=== PATIENT | male | born 1950 | race Caucasian/White ===

== ENCOUNTER 2022-02-28 08:42 | Emergency (ER) | payer OTHER, SELFPAY ==
[2022-02-28] VITALS (12 sets, daily range): BP systolic 131–175; BP diastolic 76–105; PULSE 57–72; RESP 12–18; TEMP 36.8; O2SAT 94–96; BMI 45.6
--- NOTE | 2022-02-28 09:11 | DI.RAD.S_ITS ---
PROCEDURE: XR CHEST 2V INDICATIONS: shortness of breath TECHNIQUE: 2 views of the chest were acquired. COMPARISON: None. FINDINGS: Surgical changes and devices: None. Lungs and pleura: Lungs are clear. No pleural effusions or pneumothorax. Mediastinum: Mediastinal contours are normal. Heart size is normal. Bones and chest wall: No suspicious bony abnormalities. Soft tissues appear unremarkable. IMPRESSION: No acute cardiopulmonary abnormalities or focal airspace disease. Dictated by: Parmjit Begum M.D. on 02/28/2022 at 9:46 Approved by: Parmjit Begum M.D. on 02/28/2022 at 9:46
[2022-02-28 09:21] LABS: Add Manual Diff / Slide Review NO; Basophils Absolute Auto 0 /uL (0-100); Basophils Percent Auto 0.6 % (0-2); Eosinophils Absolute Auto 200 /uL (0-450); Eosinophils Percent Auto 2.8 % (2-4); Hematocrit 47.1 % (41-53); Hemoglobin 16.1 g/dL (13.5-17.5); Lymphocytes Absolute Auto 2700 /uL (1100-4500); Lymphocytes Percent Auto 39.3 % (25-40); Mean Corpuscular HGB Conc 34.1 % (30-36); Mean Corpuscular Hemoglobin 30.7 PG (26-34); Monocytes Absolute Auto 500 /uL (0-900); Monocytes Percent Auto 6.6 % (3-14); Neutrophils Absolute Auto 3500 /uL (1500-7000); Neutrophils Percent Auto 50.7 % (50-75); Platelet Count 219 X10^3/uL (150-400); Red Blood Cell Count 5.23 X10^6/uL (4.5-5.9); Red Cell Distribution Width 18.6 % (11.6-14.8); White Blood Cell Count 6.9 X10^3/uL (4.5-11.0)
--- NOTE | 2022-02-28 09:24 | DI.CT.S_ITS ---
PROCEDURE: CT SOFT TISSUE NECK W CON INDICATIONS: Throat pain and swelling TECHNIQUE: After the administration of intravenous contrast, 3.0 mm axial sections acquired from the sella to the aortic arch. Additional oblique axial 3.0 mm sections acquired through the pharynx. 3 mm thick coronal and sagittal reformats were generated. For radiation dose reduction, the following was used: automated exposure control. COMPARISON: None. FINDINGS: Image quality: Excellent. Lymph nodes: No enlarged lymph nodes seen throughout the neck. Vessels: Visualized vasculature appears patent. Neck spaces: The oropharynx, nasopharynx, and pharynx demonstrate no mucosal lesions. The vocal cords, false vocal cords, pyriform sinuses, epiglottis, vallecula, and tongue base all appear normal. Extramucosal spaces appear unremarkable. Mild bilateral tonsillar fullness without mass or fluid collection. Glands: The parotid and submandibular glands appear normal. Thyroid gland is unremarkable. Miscellaneous: Visualized brain and orbits appear normal. Lung apices appear clear. Superficial soft tissues appear normal. Bones: No suspicious bony lesions. Visualized sinuses and mastoids appear unremarkable. IMPRESSION: Mild bilateral tonsillar fullness, overall nonspecific No mass or fluid collection. Dictated by: Jacinta Das M.D. on 02/28/2022 at 10:56 Approved by: Jacinta Das M.D. on 02/28/2022 at 11:03
--- NOTE | 2022-02-28 09:25 | ED_ITS ---
HPI - Neck Pain/Injury General Chief Complaint: Neck Pain/Injury Stated Complaint: Trouble breathing, fibroids in throat Time Seen by Provider: 02/28/22 09:16 Mode of arrival: Ambulatory History of Present Illness HPI Narrative: Patient complains of throat tightness and swelling with trouble breathing and swallowing for the past 1 week. He thought maybe he inhaled something in the environment that triggered this. He is not had any changes in his HIV/aids med ications. [facility] He states blood work done less than 4 weeks ago shows viral load of 0 with CD4 count of 400. It was 800 this past year. Patient in no distress. Denies any previous thyroid problems. No new medications. No rash. No prior history oral or esophageal fungal infection Related Data Previous Rx's Medication Instructions Recorded amoxicillin 500 mg capsule 500 mg PO BID #20 caps 02/28/22 Allergies Allergy/AdvReac Type Severity Reaction Status Date / Time pseudoephedrine AdvReac Verified 02/28/22 08:58 [From [facility]] Review of Systems Review of Systems Narrative: GENERAL: Denies chills, fatigue, malaise, fever, sweats. HEENT: Denies sinus pain, ear pain, positive for sore throat RESPIRATORY: Positive dyspnea, negative cough CARDIOVASCULAR: Denies chest pain, palpitations GASTROINTESTINAL: Denies nausea, vomiting, abdominal pain : Denies dysuria, frequency, hematuria MUSCULOSKELETAL: denies muscle or bony pain SKIN: Denies rash, skin lesions NEUROLOGIC: Denies weakness, numbness ROS Unobtainable: All systems reviewed & are unremarkable except as noted in HPI and below Patient History Substance Use Type: marijuana Exam Narrative Exam Narrative: GENERAL: in no distress, not toxic not dyspneic HEAD: Normocephalic. EYES: Pupils equal round No scleral icterus. ENT: Mucous membranes moist. Mild to moderate pharyngeal erythema, no thrush on the tongue or pharynx. No trismus or malocclusion. No pharyngeal exudates NECK: Trachea midline. No stridor, there is fullness to the anterior neck. However this may be patient's body habitus. No palpable mass or fluctuance. It is tender to touch though. No overlying erythema. Or induration. CARDIOVASCULAR: Regular rate and rhythm without murmurs RESPIRATORY: Clear to auscultation. Breath sounds equal bilaterally. No wheezes, rales, or rhonchi. GASTROINTESTINAL: Abdomen soft, non-tender EXTREMITIES: No gross deformities. BACK: No flank tenderness. NEURO: AOx4. SKIN: Warm and dry PSYCH: Not anxious, is cooperative Initial Vital Signs Initial Vital Signs: Vital Signs Pulse Rate 72 02/28/22 08:50 Pulse Oximetry 94 02/28/22 08:50 Course Course Course Narrative: No new issues during course of stay Orders Ordered: ED Orders 02/28/22 11:15 Throat Culture Stat Discontinued Medications Amoxicillin (Amoxicillin 250 Mg Capsule) 500 mg PO NOW ONE Stop: 02/28/22 11:43 Last Admin: 02/28/22 11:59 Dose: 500 mg Documented By: BONITA Sodium Chloride (Normal Saline 0.9%) 500 mls @ 1,000 mls/hr IV BOLUS ONE Stop: 02/28/22 09:53 Last Infusion: 02/28/22 10:29 Dose: 0 mls/hr Documented By: Admin: 02/28/22 09:52 Dose: 1,000 mls/hr Documented By: JENNI Reevaluation(s) Reevaluation #1: Reviewed results with patient. Will treat clinically for pharyngitis. Blood work is reassuring however with history of immune compromise, may not mount a significant white cell count. Referral for ENT given as well. Also for referral to surgery for EGD evaluate for esophagus. Agrees with treatment plan. Regarding TSH levels. Will hold on starting Synthroid as this may be incidental finding. Thyroid on CT scan unremarkable. Patient does have a primary care that he can follow up with for further investigation and starting medication. Time: 11:45 Vital Signs Vital signs: Vital Signs - 8 hr 02/28/22 11:30 02/28/22 11:30 02/28/22 11:52 Pulse Rate 57 L 61 Respiratory Rate 12 14 Blood Pressure 175/105 H Pulse Oximetry 95 96 Oxygen Delivery Method Room Air 02/28/22 11:52 Pulse Rate Respiratory Rate Blood Pressure 131/81 Pulse Oximetry Oxygen Delivery Method MDM - Neck Pain/Injury Differential Diagnosis Differential diagnosis: Likely other (Thyromegaly/hypothyroidism/Angeli esophagitis/abscess/pharyngitis) Lab Data Result diagrams: 02/28/22 09:05 02/28/22 09:05 Labs: Lab Results 09/09/22 09/09/22 09/09/22 Range/Units 09:05 09:05 09:05 WBC 6.9 (4.5-11.0) X10^3/uL RBC 5.23 (4.5-5.9) X10^6/uL Hgb 16.1 (13.5-17.5) g/dL Hct 47.1 (41-53) % MCV 90.0 (80-100) fL MCH 30.7 (26-34) PG MCHC 34.1 (30-36) % RDW 18.6 H (11.6-14.8) % Plt Count 219 (150-400) X10^3/uL Neut % (Auto) 50.7 (50-75) % Lymph % (Auto) 39.3 (25-40) % Hartley % (Auto) 6.6 (3-14) % Eos % (Auto) 2.8 (2-4) % Baso % (Auto) 0.6 (0-2) % Neut # (Auto) 3500 (6416-1069) /uL Lymph # (Auto) 2700 (7970-3647) /uL Hartley # (Auto) 500 (0-900) /uL Eos # (Auto) 200 (0-450) /uL Baso # (Auto) 0 (0-100) /uL Sodium 141 (137-145) mmol/L Potassium 4.0 (3.4-5.1) mmol/L Chloride 103 (98-107) mmol/L Carbon Dioxide 28 (22-32) mmol/L BUN 16 (9-20) mg/dL Creatinine 1.39 H (0.66-1.25) mg/dL Estimated GFR 55 L (>60) mL/min BUN/Creatinine Ratio 11.5 (6-22) Glucose 148 H (80-110) mg/dL Lactate (0.7-2.1) mmol/L Calcium 9.7 (8.4-10.2) mg/dL Total Bilirubin 0.7 (0.2-1.3) mg/dL AST 72 H (17-59) IU/L ALT 36 (<50) IU/L Alkaline Phosphatase 52 (38-126) U/L Total Protein 8.7 H (6.3-8.2) g/dL Albumin 4.5 (3.5-5.0) g/dL Globulin 4.2 H (1.7-4.1) g/dL Albumin/Globulin Ratio 1.1 (1.0-2.8) TSH (0.47-4.68) uIU/mL SARS-CoV-2 (PCR) Negative (Negative) 02/28/22 02/28/22 Range/Units 09:05 09:05 WBC (4.5-11.0) X10^3/uL RBC (4.5-5.9) X10^6/uL Hgb (13.5-17.5) g/dL Hct (41-53) % MCV (80-100) fL MCH (26-34) PG MCHC (30-36) % RDW (11.6-14.8) % Plt Count (150-400) X10^3/uL Neut % (Auto) (50-75) % Lymph % (Auto) (25-40) % Hartley % (Auto) (3-14) % Eos % (Auto) (2-4) % Baso % (Auto) (0-2) % Neut # (Auto) (1920-6067) /uL Lymph # (Auto) (7104-6091) /uL Hartley # (Auto) (0-900) /uL Eos # (Auto) (0-450) /uL Baso # (Auto) (0-100) /uL Sodium (137-145) mmol/L Potassium (3.4-5.1) mmol/L Chloride (98-107) mmol/L Carbon Dioxide (22-32) mmol/L BUN (9-20) mg/dL Creatinine (0.66-1.25) mg/dL Estimated GFR (>60) mL/min BUN/Creatinine Ratio (6-22) Glucose (80-110) mg/dL Lactate 1.3 (0.7-2.1) mmol/L Calcium (8.4-10.2) mg/dL Total Bilirubin (0.2-1.3) mg/dL AST (17-59) IU/L ALT (<50) IU/L Alkaline Phosphatase (38-126) U/L Total Protein (6.3-8.2) g/dL Albumin (3.5-5.0) g/dL Globulin (1.7-4.1) g/dL Albumin/Globulin Ratio (1.0-2.8) TSH 73.2 H (0.47-4.68) uIU/mL SARS-CoV-2 (PCR) (Negative) Point of Care Testing Rapid Strep A Negative Imaging Data Chest x-ray: Radiologist's Impression: [address] [address] XRay Report Signed Patient: Robert Romero Jr MR#: [id number] : 1950 Acct:[id number] Age/Sex: 71 / M Date of Service: 02/28/22 Loc: ED Accession Number: [id number] ?? Procedure: XR chest 2V Ordering Provider: Mervin Deal MD PROCEDURE:? XR CHEST 2V ? INDICATIONS:? shortness of breath ? TECHNIQUE:? 2 views of the chest were acquired.? ? COMPARISON:? None. ? FINDINGS:? ? Surgical changes and devices:? None.? ? Lungs and pleura:? Lungs are clear.? No pleural effusions or pneumothorax.? ? Mediastinum:? Mediastinal contours are normal.? Heart size is normal.? ? Bones and chest wall:? No suspicious bony abnormalities.? Soft tissues appear unremarkable.? ? IMPRESSION:? No acute cardiopulmonary abnormalities or focal airspace disease. ? Dictated by: Parmjit Begum M.D. on 02/28/2022 at 9:46 ? ? Approved by: Parmjit Begum M.D. on 02/28/2022 at 9:46 ? CT soft tissue neck: Radiologist's Impression: [address] [address] [address] Scan Report Signed Patient: Robert Romero Jr MR#: [id number] : 1950 Acct:[id number] Age/Sex: 71 / M Date of Service: 02/28/22 Loc: ED Accession Number: [id number] ?? Procedure: CT soft tissue neck w con Ordering Provider: Mervin Deal MD PROCEDURE:? CT SOFT TISSUE NECK W CON ? INDICATIONS:? Throat pain and swelling ? TECHNIQUE:? After the administration of intravenous contrast, 3.0 mm axial sections acquired from the sella to the aortic arch.? Additional oblique axial 3.0 mm sections acquired through the pharynx.? 3 mm thick coronal and sagittal reformats were generated.? For radiation dose reduction, the following was used:? automated exposure control.? ? COMPARISON:? None. ? FINDINGS:? Image quality:? Excellent.? ? Lymph nodes:? No enlarged lymph nodes seen throughout the neck.? ? Vessels:? Visualized vasculature appears patent.? ? Neck spaces:? The oropharynx, nasopharynx, and pharynx demonstrate no mucosal lesions.? The vocal cords, false vocal cords, pyriform sinuses, epiglottis, vallecula, and tongue base all appear normal.? Extramucosal spaces appear unremarkable.? Mild bilateral tonsillar fullness without mass or fluid collection. ? Glands:? The parotid and submandibular glands appear normal.? Thyroid gland is unremarkable.? ? Miscellaneous:? Visualized brain and orbits appear normal.? Lung apices appear clear.? Superficial soft tissues appear normal. ? Bones:? No suspicious bony lesions.? Visualized sinuses and mastoids appear unremarkable. ? ? ? IMPRESSION: Mild bilateral tonsillar fullness, overall nonspecific? No mass or fluid collect ion. ? Dictated by: Jacinta Das M.D. on 02/28/2022 at 10:56 ? ? Approved by: Jacinta Das M.D. on 02/28/2022 at 11:03 ? ECG Data Interpretation: Normal sinus rhythm rate [address] elevation or depression, right bundle-branch block MDM Narrative Medical decision making narrative: Appropriate for discharge home. Exam and laboratory studies are reassuring. Thyroid levels can be followed with family doctor and further laboratory studies before starting Synthroid. Patient asymptomatic at this time. Likely incidental finding. Treating clinically for pharyngitis/strep throat. CT of soft tissue neck does show enlarged tonsils. Patient with immune compromise condition may not mount all of clinical features. Airway intact at time of discharge. Not toxic. Return precautions reviewed with patient. He agrees with treatment plan and follow-up with general surgery for endoscopy of the esophagus as well as ENT for follow-up regarding pharyngitis. [facility] Discharge Plan Departure Patient Disposition: Home Clinical Impression: Pharyngitis Instructions: DI for Pharyngitis/Tonsillopharyngitis -- Adult, DI for Hypothyroidism Activity Restrictions/Additional Instructions: See your family doctor for re-evaluation next week. Be sure to continue amoxicillin antibiotic prescribed to you. Complete the full course. Call provided ear nose and throat clinic with Dr. Bermudez today for office dashawn ointment next week for re-evaluation of your throat. Call Dr. Jalloh with General surgery to schedule endoscopy of your throat. Return if worse if any questions or concerns. Your family doctor needs to review laboratory studies of today's thyroid results. You may need medications to treat hypothyroidism Prescriptions: New amoxicillin 500 mg capsule 500 mg PO BID Qty: 20 0RF Referrals: Kerline Champion MD [Primary Care Provider] - Fannie Jalloh MD [Physician] - Eitan Bermudez MD [Physician] - Visit Report Forms: Patient Portal/API
[2022-02-28 09:35] LABS: Alanine Aminotransferase 36 IU/L (<50); Albumin 4.5 g/dL (3.5-5.0); Albumin Globulin Ratio 1.1 (1.0-2.8); Alkaline Phosphatase 52 U/L (38-126); Aspartate Aminotransferase 72 IU/L (17-59); BUN Creatinine Ratio 11.5 (6-22); Bilirubin Total 0.7 mg/dL (0.2-1.3); Blood Urea Nitrogen 16 mg/dL (9-20); Calcium 9.7 mg/dL (8.4-10.2); Carbon Dioxide 28 mmol/L (22-32); Chloride 103 mmol/L (98-107); Estimated Glomerular Filt Rate 55 mL/min (>60); Globulin 4.2 g/dL (1.7-4.1); Glucose 148 mg/dL (80-110); HEMOLYSIS 20 (0-50); Lactate (Lactic Acid) 1.3 mmol/L (0.7-2.1); Sodium 141 mmol/L (137-145); Total Protein 8.7 g/dL (6.3-8.2)
[2022-02-28] MEDS: SODIUM CHLORIDE 0.9% 500 ML 1000 ML IV (09:52)
[2022-02-28 09:59] LABS: COVID19 -Nasal RAPID Negative (Negative)
[2022-02-28 10:35] LABS: Thyroid Stimulating Hormone 73.2 uIU/mL (0.47-4.68)
[2022-02-28] MEDS: AMOXICILLIN 250 MG CAPSULE 500 MG PO (11:59)
== END 2022-02-28 12:10 | disposition home or self-care (01) ==
PROVIDERS: Emergency Provider Emergency Medicine; PCP Internal Medicine
DX: J02.9 Acute pharyngitis, unspecified (principal); R06.02 Shortness of breath; R07.9 Chest pain, unspecified; Z20.822 Contact with and (suspected) exposure to COVID-19
CPT/HCPCS: 36415; 70491; 71046; 80053; 83605; 84443; 85025; 87070; 87635; 87880; 93005; 93010; 99284; C9803; Q9967

== ENCOUNTER 2024-05-05 04:33 | Emergency (ER) | payer MEDICARE, SELFPAY ==
[2024-05-05] VITALS (7 sets, daily range): BP systolic 167; BP diastolic 96; PULSE 46–95; TEMP 36.4; O2SAT 93–98; BMI 41.0
--- NOTE | 2024-05-05 04:47 | ED_ITS ---
HPI - Male Genitourinary General Chief complaint: Urogenital-Male Stated complaint: testicle pain Time Seen by Provider: 05/05/24 04:34 History of Present Illness HPI Narrative: 73-year-old male presents for 2-3 days of increasing R scrotal pain. History is difficulty to obtain as patient is poor historian. 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 Patient states that he has been seen by Urology several times at [facility] and states that a few weeks ago his urologist told him: It's just AIDS, don't bother me about this again. He says he doesn't know his exact viral load or T-count, but says I think I'm undetectable and my CD4 should be over 1200. Denies nausea, vomiting, difficulty urinating. Related Data Previous Rx's Medication Instructions Recorded amoxicillin 500 mg capsule 500 mg PO BID #20 caps 02/28/22 hydrocodone 5 mg-acetaminophen 325 1 tab PO BEDTIME PRN pain #7 tabs 05/05/24 mg tablet Allergies Allergy/AdvReac Type Severity Reaction Status Date / Time pseudoephedrine AdvReac Verified 03/12/22 14:02 [From [facility]] Patient History Social History Smoking Status: Former smoker Substance Use Type: marijuana Exam Initial Vital Signs Initial Vital Signs: Vital Signs Pulse Rate 95 H 05/05/24 04:42 Blood Pressure 167/96 H 05/05/24 04:42 Pulse Oximetry 95 05/05/24 04:42 Const: Awake, alert, no acute distress, obese Cardiac: regular rate, regular rhythm RESP: unlabored, clear bilaterally, no wheezing GI: Soft, nontender, nondistended : atraumatic, buried penis. No obvious scrotal swelling or erythema. Exquisite tenderness at base of R scrotum Skin: Warm, Dry, intact, no rashes Neuro: AO x3, CN II-XII grossly intact, moves all extremities Course Orders Ordered: Discontinued Medications Oxycodone/Acetaminophen (Oxycodone/Acetaminophen 5/325 Tablet) 1 tab PO NOW ONE Stop: 05/05/24 05:10 Last Admin: 05/05/24 05:22 Dose: 1 tab Documented By: HNG Vital Signs Vital signs: Vital Signs - 8 hr 05/05/24 04:44 Temperature 97.6 F MDM - Male Genitourinary Lab Data 05/05/24 04:55 05/05/24 04:55 Labs: Lab Results 05/05/24 05/05/24 Range/Units 04:55 05:05 WBC 12.3 H (4.5-11.0) X10^3/uL RBC 4.82 (4.5-5.9) X10^6/uL Hgb 15.2 (13.5-17.5) g/dL Hct 45.4 (41-53) % MCV 94.1 (80-100) fL MCH 31.5 (26-34) PG MCHC 33.4 (30-36) % RDW 13.9 (11.6-14.8) % Plt Count 336 (150-400) X10^3/uL Neut % (Auto) 50.2 (50-75) % Lymph % (Auto) 37.0 (25-40) % Camp % (Auto) 9.5 (3-14) % Eos % (Auto) 2.7 (2-4) % Baso % (Auto) 0.6 (0-2) % Neut # (Auto) 6200 (2590-5891) /uL Lymph # (Auto) 4600 H (8549-1069) /uL Camp # (Auto) 1200 H (0-900) /uL Eos # (Auto) 300 (0-450) /uL Baso # (Auto) 100 (0-100) /uL Sodium 138 (137-145) mmol/L Potassium 4.1 (3.4-5.1) mmol/L Chloride 107 (98-107) mmol/L Carbon Dioxide 22 (22-32) mmol/L BUN 18 (9-20) mg/dL Creatinine 0.83 (0.66-1.25) mg/dL Estimated GFR > 60 (>60) mL/min BUN/Creatinine Ratio 21.7 (6-22) Glucose 227 H (80-110) mg/dL Calcium 9.6 (8.4-10.2) mg/dL Total Bilirubin 0.5 (0.2-1.3) mg/dL AST 33 (17-59) IU/L ALT 36 (<50) IU/L Alkaline Phosphatase 65 (38-126) U/L Total Protein 7.7 (6.3-8.2) g/dL Albumin 4.0 (3.5-5.0) g/dL Globulin 3.7 (1.7-4.1) g/dL Albumin/Globulin Ratio 1.1 (1.0-2.8) Urine Color Yellow Urine Appearance Clear Urine pH 5.5 (4.5-8.0) Ur Specific Gause 1.025 (1.000-1.035) Urine Protein Negative (Negative) Urine Glucose (UA) Negative (Negative) g/dL Urine Ketones Negative (NEGATIVE) Urine Occult Blood Negative (Negative) Urine Nitrate Negative (Negative) Urine Bilirubin Negative (NEGATIVE) Urine Urobilinogen 0.2 (0.2) E.U./dL Ur Leukocyte Esterase Negative (NEGATIVE) Urine RBC None seen (0-5/HPF) Urine WBC 0-1/hpf (0-5/HPF) Ur Squamous Epith Cells 0-1 /hpf (0-5/HPF) Urine Bacteria None seen (None) Ur Culture Indicated? Cult not indicated Vol Urine Centrifuged 10ml (spun) Imaging Data US - BEER STILL RUNNER COMPOUNDER: Radiologist's Impression: PROCEDURE: US SCROTUM INDICATIONS: R TESTICULAR PAIN/SWELLING TECHNIQUE: Real-time scanning was performed of the scrotum and testicles, with image documentation. Color and pulse Doppler interrogation was performed of both testicles. COMPARISON: None. FINDINGS: Right: Testicle is normal in size at 5.1 x 3.2 x 2.4 cm, and homogenous in echotexture. Epididymis is normal in overall size and morphology. No hydrocele or varicoceles. Overlying scrotal skin is normal in thickness. Multiple right epididymal cysts, the largest of which measures 2.1 x 1.9 x 1.7 cm. Left: Testicle is normal in size at 4.8 x 3.2 x 2.1 cm, and homogeneous in echotexture. Left testicle is noted to be rotated 180?. Has flow within it. Epididymis is normal in overall size and morphology. No hydrocele or varicoceles. Overlying scrotal skin is normal in thickness. Doppler: Color and pulse Doppler demonstrate normal and symmetric arterial flow in both testicles. Fat containing left inguinal hernia, not fully reducible with the ultrasound probe. The abdominal wall defect is approximately 2.2 cm. IMPRESSION: 1. The left testicle is rotated 180?. There is currently no evidence of testicular torsion. 2. Multiple large right epididymal cysts. 3. Fat containing right inguinal hernia. Comment: Final report is concordant with preliminary interpretation provided by [facility]. Dictated by: Riley Reyes M.D. on 05/05/2024 at 8:56 Approved by: Riley Reyes M.D. on 05/05/2024 at 9:00 [facility] Narrative Medical decision making narrative: Patient presenting for right-sided testicular pain. Records from [facility] reviewed. Patient had 2 visits on 04/01 and 04/03 for same complaint. He had an ultrasound performed on 04/01 that showed right epididymal simple cysts, skin thickening overlying the scrotum. At that time the provider called on-call urologist Dr. Deleon, who recommended oral doxycycline out of precaution to treat for cellulitis. Patient returned 2 days later insistent on receiving pain medications. He was noted at numerous points in both ER note to be requesting pain medications due losing follow up with his PCP. At that time his BUSINESS AFFAIRS MANAGER showed that he received a prescription for narcotics on March 16 that should have lasted him for at least another 2 weeks. Patient reportedly became verbally abusive, threatening to call the police when he was informed that he could not receive anymore prescription narcotics. I reviewed patient's BUSINESS AFFAIRS MANAGER and he received a 2 week supply of tramadol at the end of March from a primary care doctor at [facility]. US to be ordered, however care will be given with prescribing narcotics. US shows that left testicle was rotated 180? however there are no signs of torsion, and an any rate his pain is on the right-hand side not the left-hand side. There was note made of a left hernia, which the patient states he was aware of. Patient states that he has a primary appointment coming up on June 02 and requests a medication for pain ?to help me sleep at night?. BUSINESS AFFAIRS MANAGER shows that he is not currently in over-use and 7 tablets of norco [facility]. Discharge Plan Departure Patient Disposition: Home Clinical Impression: Right testicular pain Instructions: DI for Testicular Pain Activity Restrictions/Additional Instructions: Your ultrasound today did not show any sign of infection or abnormal twisting. You have some cysts present, that were also seen when he went to [facility] 1 month ago. You may take Tylenol and ibuprofen as needed for pain. Wear supportive underwear. Follow up with your urologist. If you can not follow up with your urologist at [facility] a different referral number has been provided.. Prescriptions: New hydrocodone-acetaminophen 5-325 mg tablet 1 tab PO BEDTIME PRN (Reason: pain) Qty: 7 0RF No Action amoxicillin 500 mg capsule 500 mg PO BID Qty: 20 0RF Referrals: Kerline Hess MD [Primary Care Provider] - Mervin Chavez MD [Physician] - Stand Alone Forms: Patient Portal/API/Survey
[2024-05-05 05:05] LABS: Add Manual Diff / Slide Review NO; Basophils Absolute Auto 100 /uL (0-100); Basophils Percent Auto 0.6 % (0-2); Eosinophils Absolute Auto 300 /uL (0-450); Eosinophils Percent Auto 2.7 % (2-4); Hematocrit 45.4 % (41-53); Hemoglobin 15.2 g/dL (13.5-17.5); Lymphocytes Absolute Auto 4600 /uL (1100-4500); Mean Corpuscular HGB Conc 33.4 % (30-36); Mean Corpuscular Hemoglobin 31.5 PG (26-34); Mean Corpuscular Volume 94.1 fL (80-100); Monocytes Absolute Auto 1200 /uL (0-900); Monocytes Percent Auto 9.5 % (3-14); Neutrophils Absolute Auto 6200 /uL (1500-7000); Neutrophils Percent Auto 50.2 % (50-75); Platelet Count 336 X10^3/uL (150-400); Red Blood Cell Count 4.82 X10^6/uL (4.5-5.9); Red Cell Distribution Width 13.9 % (11.6-14.8); White Blood Cell Count 12.3 X10^3/uL (4.5-11.0)
[2024-05-05 05:14] LABS: Appearance Urine UA CLEAR; Bilirubin Urine UA NEGATIVE (NEGATIVE); Color Urine UA YELLOW; Glucose Urine UA NEGATIVE (Negative); Ketones Urine UA NEGATIVE (NEGATIVE); Leukocyte Esterase Urine UA NEGATIVE (NEGATIVE); Nitrite Urine UA NEGATIVE (Negative); Occult Blood Urine UA NEGATIVE (Negative); Protein Urine UA NEGATIVE (Negative); Specific Gravity Urine UA 1.025 (1.000-1.035); Urobilinogen Urine UA 0.2 E.U./dL (0.2); pH Urine UA 5.5 (4.5-8.0)
[2024-05-05 05:18] LABS: Alanine Aminotransferase 36 IU/L (<50); Albumin Globulin Ratio 1.1 (1.0-2.8); Alkaline Phosphatase 65 U/L (38-126); Aspartate Aminotransferase 33 IU/L (17-59); BUN Creatinine Ratio 21.7 (6-22); Bilirubin Total 0.5 mg/dL (0.2-1.3); Blood Urea Nitrogen 18 mg/dL (9-20); Calcium 9.6 mg/dL (8.4-10.2); Carbon Dioxide 22 mmol/L (22-32); Chloride 107 mmol/L (98-107); Estimated Glomerular Filt Rate > 60 mL/min (>60); Globulin 3.7 g/dL (1.7-4.1); Glucose 227 mg/dL (80-110); HEMOLYSIS < 15 (0-50); Potassium 4.1 mmol/L (3.4-5.1); Sodium 138 mmol/L (137-145); Total Protein 7.7 g/dL (6.3-8.2)
[2024-05-05] MEDS: OXYCODONE/ACETAMINOPHEN 5/325 TABLET 1 TAB PO (05:22)
[2024-05-05 05:24] LABS: Bacteria Urine None Seen; RBC Urine None Seen (0-5/HPF); Urine Volume 10mL (spun); WBC Urine 0-1/HPF (0-5/HPF)
[2024-05-05 05:25] LABS: Culture Indicated Urine Cult Not Indicated; Squamous Epithelial Cell Urine 0-1 /HPF (0-5/HPF)
== END 2024-05-05 07:25 | disposition home or self-care (01) ==
PROVIDERS: Emergency Provider Emergency Medicine; PCP Internal Medicine
DX: N50.811 Right testicular pain (principal)
CPT/HCPCS: 36415; 76870; 80053; 81001; 85025; 93975; 99283; 99284

== ENCOUNTER 2024-05-09 10:26 | Emergency (ER) | payer MEDICARE, MEDICAID, SELFPAY ==
[2024-05-09] VITALS (11 sets, daily range): BP systolic 122–139; BP diastolic 61–85; PULSE 81–91; RESP 16–26; TEMP 36.8; O2SAT 93–97; BMI 39.5
--- NOTE | 2024-05-09 10:43 | EKG_ITS ---
[address] [address] Test Date: 2024-05-09 Pat Name: Robert Romero Jr Department: Room: Gender: Male Senior Talent Acquisition Specialist: SHIRIN : 1950 Requested By: Order Number: [id number] Reading MD: Chon Larios Measurements Intervals [place] Rate: 87 P: 44 [place]: 168 QRS: -71 QRSD: 104 T: 30 QT: 376 QTc: 452 Interpretive Statements Normal sinus rhythm Pulmonary disease pattern Left anterior fascicular block Electronically Signed On 05-11-2024 19:02:56 PST by Chon Larios
--- NOTE | 2024-05-09 10:46 | DI.RAD.S_ITS ---
PROCEDURE: XR CHEST 1V INDICATIONS: chest pain TECHNIQUE: One view of the chest was acquired. COMPARISON: None. FINDINGS: Surgical changes and devices: None. Lungs and pleura: Lungs are clear. No pleural effusions or pneumothorax. Mediastinum: Mediastinal contours appear normal. Heart size is normal. Bones and chest wall: No suspicious bony lesions. Overlying soft tissues appear unremarkable. IMPRESSION: No acute cardiopulmonary abnormality is seen. Dictated by: Feliz Frank M.D. on 05/09/2024 at 10:56 Approved by: Feliz Frank M.D. on 05/09/2024 at 10:57
[2024-05-09 11:21] LABS: Add Manual Diff / Slide Review NO; Basophils Absolute Auto 100 /uL (0-100); Basophils Percent Auto 0.8 % (0-2); Eosinophils Absolute Auto 400 /uL (0-450); Eosinophils Percent Auto 2.8 % (2-4); Hemoglobin 14.7 g/dL (13.5-17.5); Lymphocytes Absolute Auto 3300 /uL (1100-4500); Lymphocytes Percent Auto 23.8 % (25-40); Mean Corpuscular HGB Conc 33.4 % (30-36); Mean Corpuscular Hemoglobin 31.3 PG (26-34); Mean Corpuscular Volume 93.8 fL (80-100); Monocytes Absolute Auto 1300 /uL (0-900); Monocytes Percent Auto 9.2 % (3-14); Neutrophils Absolute Auto 8900 /uL (1500-7000); Neutrophils Percent Auto 63.4 % (50-75); Platelet Count 282 X10^3/uL (150-400); Red Cell Distribution Width 14.1 % (11.6-14.8)
--- NOTE | 2024-05-09 11:26 | ED.GENADULT ---
HPI - General Adult General Chief complaint: Dizziness Stated complaint: Hot flashes, Balance is off Time Seen by Provider: 05/09/24 11:09 Source: patient, RN notes reviewed and old records reviewed Mode of arrival: Ambulatory Limitations: no limitations History of Present Illness HPI narrative: 73-year-old male history of longstanding HIV reports well-controlled on antivirals patient presents with complaint of nausea and dizziness. Patient states he has had hot flashes and nausea he states it feels very similar as to when he initially started his antivirals 30 years ago when he was in the initial treatment state of his HIV/aids but states that he has not had that for some time. He states he has been having night sweats but also notes he is gone back on injections in addition to his antivirals for his HIV and seems to correlate to this. He notes symptoms were better controlled when he was on ferrous bones and daily narcotic from his primary care who has since retired. He states that he does not feel that there is any withdrawal component to his symptoms. He notes that he has also been feeling dizzy he describes it as the room spinning. Denies any recent upper respiratory infection, no hearing changes. States he has not had any vomiting with it. He has felt a little bit off balance states he fell 1 trend Thursday when this 1st seemed to start with the balance issues. Patient states no numbness tingling or weakness. No lateralizing weakness. No difficulty with speech. Vision changes. States he has a little chest discomfort but states it is his fibro myalgias spots in his chest. He can reproduce it when he palpates. Denies shortness of breath. States he has been having some chronic diarrhea no bright red blood or melanotic stools. No new changes to urination he has had intermittent testicular pain but states it seems to be improving since he was seen here on 05/05/2024. States home medications include ritonavir, tenofovir Patient states no prior surgeries. Has multiple allergies to medications. Denies tobacco, states quit alcohol 31 years ago, no recreational drugs. He has seeking a primary care physician [facility] Related Data Previous Rx's Medication Instructions Recorded amoxicillin 500 mg capsule 500 mg PO BID #20 caps 02/28/22 hydrocodone 5 mg-acetaminophen 325 1 tab PO BEDTIME PRN pain #7 tabs 05/05/24 mg tablet nitrofurantoin 100 mg PO Q12H 5 days #10 caps 05/09/24 monohydrate/macrocrystals 100 mg capsule (Macrobid) ondansetron 4 mg disintegrating 4 mg PO Q6H PRN nausea and 05/09/24 tablet vomiting #10 tabs Allergies Allergy/AdvReac Type Severity Reaction Status Date / Time tenofovir Allergy Severe Swelling Verified 05/09/24 10:51 of Lip/Tongue/Throat amoxicillin [From Augmentin] AdvReac Verified 05/09/24 10:49 carisoprodol [From Soma] AdvReac Verified 05/09/24 10:49 clavulanic acid AdvReac Verified 05/09/24 10:49 [From Augmentin] efavirenz [From Sustiva] AdvReac Verified 05/09/24 10:49 magnesium AdvReac Verified 05/09/24 10:49 meperidine [From Demerol] AdvReac Verified 05/09/24 10:49 oxycodone [From OxyContin] AdvReac Verified 05/09/24 10:49 pseudoephedrine AdvReac Verified 05/09/24 10:49 [From Sudafed] Review of Systems Review of Systems ROS Unobtainable: All systems reviewed & are unremarkable except as noted in HPI and below Patient History Social History Smoking Status: Former smoker Smoking Status: Former smoker Substance Use Type: marijuana Exam Narrative Exam Narrative: GEN: well nourished, well appearing male, alert and oriented x 3, patient appears to be in mild distress. HEENT: Atraumatic, pupils are equal round reactive to light, extraocular movements are intact, nares are clear, TMs are clear with no fluid, there is no conjunctival pallor. Throat is clear without any exudates, erythema, tonsillar enlargement or uvular deviation, no facial droop HEART: Regular rate and rhythm without murmur, clicks, rubs. Pulses are equal in upper and lower extremities LUNGS:Lungs clear to auscultation, no wheezes, rales, crackles, chest moves symmetrically ABD:bowel sounds normal, soft, non-tender, no guarding, rebound, rigidity, no masses noted, no hepatosplenomegaly :No CVA tenderness MSCL: Non-tender, no muscle atrophy, muscles strength 5/5 upper and lower extremities, full range of motion. NEURO:CN 2-12 intact, sensation normal. Initial Vital Signs Initial Vital Signs: Vital Signs Pulse Rate 91 H 05/09/24 10:39 Respiratory Rate 18 05/09/24 10:39 Pulse Oximetry 96 05/09/24 10:39 Course Orders Ordered: Discontinued Medications Aspirin (Aspirin 81 Mg Chew Tab) 324 mg PO NOW ONE Stop: 05/09/24 10:47 Last Admin: 05/09/24 12:06 Dose: Not Given Documented By: BRIGIDA Meclizine HCl (Meclizine Hcl 12.5 Mg Tablet) 50 mg PO NOW ONE Stop: 05/09/24 11:44 Last Admin: 05/09/24 12:12 Dose: 50 mg Documented By: BRIGIDA Ondansetron HCl (Ondansetron 4 Mg/2 Ml Inj) 4 mg IV NOW ONE Stop: 05/09/24 11:44 Last Admin: 05/09/24 12:01 Dose: 4 mg Documented By: BRIGIDA Vital Signs Vital signs: Vital Signs - 8 hr 05/09/24 10:39 05/09/24 10:40 05/09/24 11:00 Temperature 98.3 F Pulse Rate 91 H 88 87 Respiratory Rate 18 18 23 Blood Pressure 122/84 Pulse Oximetry 96 97 94 Oxygen Delivery Method Room Air 05/09/24 11:00 05/09/24 11:30 05/09/24 11:30 Temperature Pulse Rate 82 Respiratory Rate 22 Blood Pressure 124/70 125/65 Pulse Oximetry 96 Oxygen Delivery Method Room Air 05/09/24 11:57 05/09/24 11:57 05/09/24 12:00 Temperature Pulse Rate 81 84 Respiratory Rate 23 17 Blood Pressure 138/85 Pulse Oximetry 97 96 Oxygen Delivery Method Room Air 05/09/24 12:00 05/09/24 12:30 05/09/24 12:30 Temperature Pulse Rate 86 Respiratory Rate 26 H Blood Pressure 130/79 125/61 Pulse Oximetry 96 Oxygen Delivery Method 05/09/24 12:39 05/09/24 12:39 05/09/24 13:00 Temperature Pulse Rate 86 Respiratory Rate 23 Blood Pressure 139/73 Pulse Oximetry 96 93 Oxygen Delivery Method Room Air 05/09/24 13:01 05/09/24 13:01 Temperature Pulse Rate 89 Respiratory Rate Blood Pressure 124/74 Pulse Oximetry 94 Oxygen Delivery Method Room Air Medical Decision Making Lab Data 05/09/24 11:10 05/09/24 11:10 Labs: Lab Results 05/09/24 05/09/24 Range/Units 11:10 12:40 WBC 14.0 H (4.5-11.0) X10^3/uL RBC 4.70 (4.5-5.9) X10^6/uL Hgb 14.7 (13.5-17.5) g/dL Hct 44.0 (41-53) % MCV 93.8 (80-100) fL MCH 31.3 (26-34) PG MCHC 33.4 (30-36) % RDW 14.1 (11.6-14.8) % Plt Count 282 (150-400) X10^3/uL Neut % (Auto) 63.4 (50-75) % Lymph % (Auto) 23.8 L (25-40) % [place] % (Auto) 9.2 (3-14) % Eos % (Auto) 2.8 (2-4) % Baso % (Auto) 0.8 (0-2) % Neut # (Auto) 8900 H (2811-1800) /uL Lymph # (Auto) 3300 (3229-5908) /uL [place] # (Auto) 1300 H (0-900) /uL Eos # (Auto) 400 (0-450) /uL Baso # (Auto) 100 (0-100) /uL PT 12.0 (9.4-12.5) SECONDS INR 1.1 (0.9-1.3) APTT 30 (25.1-36.5) SECONDS Sodium 138 (137-145) mmol/L Potassium 4.1 (3.4-5.1) mmol/L Chloride 104 (98-107) mmol/L Carbon Dioxide 24 (22-32) mmol/L BUN 16 (9-20) mg/dL Creatinine 0.82 (0.66-1.25) mg/dL Estimated GFR > 60 (>60) mL/min BUN/Creatinine Ratio 19.5 (6-22) Glucose 184 H (80-110) mg/dL Calcium 9.7 (8.4-10.2) mg/dL Magnesium 2.0 (1.6-2.3) mg/dL Total Bilirubin 0.6 (0.2-1.3) mg/dL AST 37 (17-59) IU/L ALT 40 (<50) IU/L Alkaline Phosphatase 69 (38-126) U/L Total Creatine Kinase 26 L (55-170) U/L Troponin I < 0.012 (0.01-0.034) ng/mL NT-Pro-B Natriuret Pep 37 (<125) pg/mL Total Protein 7.4 (6.3-8.2) g/dL Albumin 4.1 (3.5-5.0) g/dL Globulin 3.3 (1.7-4.1) g/dL Albumin/Globulin Ratio 1.2 (1.0-2.8) Lipase 84 (23-300) U/L Urine RBC None seen (0-5/HPF) Urine WBC 1-5/hpf (0-5/HPF) Ur Squamous Epith Cells None seen (0-5/HPF) Urine Bacteria None seen (None) Ur Culture Indicated? Specimen cultured Vol Urine Centrifuged 10ml (spun) Urine Dip Bedside Urine Glucose Negative Bedside Urine Bilirubin - Negative Bedside Urine Ketone - Negative Urine Specific [place] 1.015 Bedside Urine Occult Blood - Negative Bedside Urine pH 6.0 Bedside Urine Protein - Negative Bedside Urine Urobilinogen - Negative Bedside Urine Nitrite - Negative Bedside Urine Leukocytes +/- 15 Esterase Point of care testing: Urine Dip Bedside Urine Glucose Negative Bedside Urine Bilirubin - Negative Bedside Urine Ketone - Negative Urine Specific [place] 1.015 Bedside Urine Occult Blood - Negative Bedside Urine pH 6.0 Bedside Urine Protein - Negative Bedside Urine Urobilinogen - Negative Bedside Urine Nitrite - Negative Bedside Urine Leukocytes +/- 15 Esterase Imaging Data Chest x-ray: Radiologist's Impression: Robert Romero Jr??73??M??1950 ? Allergy/Adv: tenofovir, amoxicillin, carisoprodol, clavulanic acid, efavirenz, magnesium, meperidine, oxycodone, pseudoephedrine (More??) Close Chest X-Ray (Signed) Feliz Frank - 05/09/24 Scrotum Ultrasound (Signed) Riley Reyes - 05/05/[address] (Signed) Jacinta Das - 02/28/22 Chest X-Ray (Signed) Parmjit Begum - 02/28/22 Launch?[address] [address] XRay Report Signed Patient: Robert Romero Jr MR#: [id number] : 1950 Acct:[id number] Age/Sex: 73 / M Date of Service: 05/09/24 Loc: ED Accession Number: [id number] Procedure: XR chest 1V Ordering Provider: Anna Gaitan D.O. PROCEDURE: XR CHEST 1V INDICATIONS: chest pain TECHNIQUE: One view of the chest was acquired. COMPARISON: None. FINDINGS: Surgical changes and devices: None. Lungs and pleura: Lungs are clear. No pleural effusions or pneumothorax. Mediastinum: Mediastinal contours appear normal. Heart size is normal. Bones and chest wall: No suspicious bony lesions. Overlying soft tissues appear unremarkable. IMPRESSION: No acute cardiopulmonary abnormality is seen. Dictated by: Feliz Frank M.D. on 05/09/2024 at 10:56 Approved by: Feliz Frank M.D. on 05/09/2024 at 10:57 CT scan - head: Radiologist's Impression: ephedrine (More??) Close Head CT (Signed) Feliz Frank - 05/09/24 Chest X-Ray (Signed) Feliz Frank - 05/09/24 [place] Ultrasound (Signed) Riley Reyes - 05/05/[address] (Signed) Jacinta Das - 02/28/22 Chest X-Ray (Signed) Parmjit Begum - 02/28/22 Launch?[address] [address] [address] Scan Report Signed Patient: Robert Romero Jr MR#: [id number] : 1950 Acct:[id number] Age/Sex: 73 / M Date of Service: 05/09/24 Loc: ED Accession Number: [id number] Procedure: CT head/brain wo con Ordering Provider: Anna Gaitan D.O. PROCEDURE: CT HEAD/BRAIN WO CON INDICATIONS: dizziness, HIV well controlled TECHNIQUE: Noncontrast 4.5 mm thick angled axial sections acquired from the foramen magnum to the vertex, with coronal and sagittal reformats. For radiation dose reduction, the following was used: automated exposure control, adjustment of mA and/or kV according to patient size. COMPARISON: None. FINDINGS: Image quality: Diagnostic. CSF spaces: Basal cisterns are patent. No extra-axial fluid collections. Ventricles are normal in size and shape. Brain: No midline shift. No intracranial masses or hemorrhage. Dong-white matter interface is normal. Skull and face: Calvarium and visualized facial bones are intact, without suspicious lesions. Sinuses: Visualized sinuses and mastoids are clear. IMPRESSION: No acute intracranial pathology. Dictated by: Feliz Frank M.D. on 05/09/2024 at 12:23 Approved by: Feliz Frank M.D. on 05/09/2024 at 12:24 ECG Data Attestation: I personally reviewed and interpreted this ECG as follows: Prior ECG tracings: available for review Interpretation: Sinus rhythm rate 87 AK 168 QRS of 104 QTC of 452, no acute ST changes appreciated. Patient has prior from 02/28/2022 which appears similar. MDM Narrative Medical decision making narrative: 73-year-old male was seen 05/05/2024 for scrotal pain note was reviewed patient was discharged home with pain medication had had a course of doxycycline there was no on ultrasound of the left testicle was rotated 180? although patient was having right testicular pain at that time. Patient notes nausea, night sweats does note he recent lay restarted injections for his HIV which might be causing some of his symptoms but also describes some dizziness no lateralizing weakness or other acute neurologic changes are appreciated. Labs show white count of 14 hemoglobin of 14.7 platelets of 282 white count is slightly elevated up from 12 on 05/05/2024. Coags Chemistries are appropriate with normal electrolytes, BUN and creatinine, glucose of 184 LFTs are negative total CK is 26 troponins less than 0.012 with a BNP of 37 Chest x-ray shows no acute change Head CT shows no acute change EKG shows sinus rhythm rate [address] changes patient has prior from 2021 appears similar. Urine shows leuks Patient states he feels improved. He would like a refill for his Zofran, reviewed his findings from today discussed with patient he is unsure if the meclizine was helpful but we did discuss that is available [id number]. We will start with an oral antibiotic as possibly has a UTI that could be causing some of his symptoms as well. Patient feels comfortable with this plan he would like to return home. He is able to head in all directions issues and has been up from the side of the bed to a chair without problems. Discharge Plan Departure Patient Disposition: Home Clinical Impression: Dizziness Instructions: DI for Dizziness-Nonvertigo Activity Restrictions/Additional Instructions: Please follow up with your physician for recheck. Contacts included on the card with the paperwork these are local primary care physicians taking patient is currently. Please call the number or use the QR code to set up follow up. Take oral antibiotics until completed. Prescription for Zofran was included you can take 1 tablet every 6 hours as needed for nausea. If you find the vertigo medication helpful you can take an [id number] has Bonivert, the presciption name is Meclizine. Prescription sent to [facility] in [place]. Please return if you are having new or worsening symptoms, any difficulty with speech, numbness weakness or tingling, passing out, new chest pain or shortness of breath, persistent vomiting or other new or concerning changes. Prescriptions: New nitrofurantoin monohyd/m-cryst [Macrobid] 100 mg capsule 100 mg PO Q12H 5 Days Qty: 10 0RF Rx Instructions: must administer with a meal/food ondansetron 4 mg tablet,disintegrating 4 mg PO Q6H PRN (Reason: nausea and vomiting) Qty: 10 0RF No Action amoxicillin 500 mg capsule 500 mg PO BID Qty: 20 0RF hydrocodone-acetaminophen 5-325 mg tablet 1 tab PO BEDTIME PRN (Reason: pain) Qty: 7 0RF Referrals: Kerline Hess MD [Primary Care Provider] - Stand Alone Forms: Patient Portal/API/Survey
[2024-05-09 11:37] LABS: Alanine Aminotransferase 40 IU/L (<50); Albumin 4.1 g/dL (3.5-5.0); Albumin Globulin Ratio 1.2 (1.0-2.8); Alkaline Phosphatase 69 U/L (38-126); Aspartate Aminotransferase 37 IU/L (17-59); BUN Creatinine Ratio 19.5 (6-22); Bilirubin Total 0.6 mg/dL (0.2-1.3); Blood Urea Nitrogen 16 mg/dL (9-20); Calcium 9.7 mg/dL (8.4-10.2); Carbon Dioxide 24 mmol/L (22-32); Chloride 104 mmol/L (98-107); Creatine Kinase 26 U/L (55-170); Estimated Glomerular Filt Rate > 60 mL/min (>60); Globulin 3.3 g/dL (1.7-4.1); Glucose 184 mg/dL (80-110); HEMOLYSIS < 15 (0-50); Lipase 84 U/L (23-300); Potassium 4.1 mmol/L (3.4-5.1); Sodium 138 mmol/L (137-145); Total Protein 7.4 g/dL (6.3-8.2)
--- NOTE | 2024-05-09 11:43 | DI.CT.S_ITS ---
PROCEDURE: CT HEAD/BRAIN WO CON INDICATIONS: dizziness, HIV well controlled TECHNIQUE: Noncontrast 4.5 mm thick angled axial sections acquired from the foramen magnum to the vertex, with coronal and sagittal reformats. For radiation dose reduction, the following was used: automated exposure control, adjustment of mA and/or kV according to patient size. COMPARISON: None. FINDINGS: Image quality: Diagnostic. CSF spaces: Basal cisterns are patent. No extra-axial fluid collections. Ventricles are normal in size and shape. Brain: No midline shift. No intracranial masses or hemorrhage. Dong-white matter interface is normal. Skull and face: Calvarium and visualized facial bones are intact, without suspicious lesions. Sinuses: Visualized sinuses and mastoids are clear. IMPRESSION: No acute intracranial pathology. Dictated by: Feliz Frank M.D. on 05/09/2024 at 12:23 Approved by: Feliz Frank M.D. on 05/09/2024 at 12:24
[2024-05-09 11:49] LABS: NT-proBNP (BNP-Adult 18+) 37 pg/mL (<125); Troponin I < 0.012 ng/mL (0.01-0.034)
[2024-05-09 11:54] LABS: INR 1.1 (0.9-1.3)
[2024-05-09 11:55] LABS: PTT Partial Thromboplastin Tim 30 SECONDS (25.1-36.5)
[2024-05-09] MEDS: ONDANSETRON 4 MG/2 ML INJ IV (12:01)
[2024-05-09] MEDS: MECLIZINE HCL 12.5 MG TABLET 50 MG PO (12:12)
[2024-05-09 13:39] LABS: Urine Volume 10mL (spun)
[2024-05-09 13:40] LABS: RBC Urine None Seen (0-5/HPF)
[2024-05-09 13:41] LABS: Bacteria Urine None Seen; Culture Indicated Urine Specimen Cultured; Squamous Epithelial Cell Urine None Seen (0-5/HPF); WBC Urine 1-5/HPF (0-5/HPF)
== END 2024-05-09 13:55 | disposition home or self-care (01) ==
PROVIDERS: Emergency Provider Emergency Medicine; PCP Internal Medicine
DX: R42 Dizziness and giddiness (principal); R11.0 Nausea; R07.9 Chest pain, unspecified; I44.4 Left anterior fascicular block; N50.811 Right testicular pain; B20 Human immunodeficiency virus [HIV] disease
CPT/HCPCS: 36415; 70450; 71045; 80053; 81003; 81015; 82550; 83690; 83735; 83880; 84484; 85025; 85610; 85730; 87086; 93005; 96374; 99285; J2405